=== PATIENT | male | born 1960 | race Caucasian/White ===

== ENCOUNTER → 2020-07-23 | Outpatient (CLI) | payer BC, OTHER ==
[~2020-07-23] MED LIST: ATEN25 PO; HYDCHL12.5 PO; OMEPRAZOLE MAGN20 MG PO; Percocet 5-3251 EACH PO
== END | disposition home or self-care (01) ==
LOC: LAB 16:14 → LAB SHORT 16:14
DX: Z20.828 Contact with and (suspected) exposure to other viral communicable diseases (principal)
CPT/HCPCS: U0003

== ENCOUNTER → 2024-03-25 | Outpatient (CLI) | payer OTHER ==
[2024-03-25 17:40] LABS: Source, Urine Clean Catch
[2024-03-25 19:25] LABS: Bacteria Few /hpf; Red Blood Cells, Urine 50-100 /hpf (0-2); Squamous Epithelial Cells Rare /hpf (Few); White Blood Cells, Urine 0-2 /hpf (0-5)
== END ==
LOC: LAB 17:38 → LAB SHORT 17:38
PROVIDERS: Family Medicine
DX: R31.9 Hematuria, unspecified (principal)
CPT/HCPCS: 81015; 87086

== ENCOUNTER → 2025-03-27 | Outpatient (CLI) | payer OTHER ==
[2025-03-27 11:56] LABS: Source, Urine Clean Catch
[2025-03-27 12:13] LABS: Red Blood Cells, Urine 0-2 /hpf (0-2); White Blood Cells, Urine Not Seen /hpf (0-5)
== END ==
LOC: LAB SHORT 11:54 → LAB 11:54
PROVIDERS: Physician Assistant
DX: R31.9 Hematuria, unspecified (principal)
CPT/HCPCS: 81015